=== PATIENT | female | born 1935 | race Caucasian/White ===

== ENCOUNTER 2020-01-22 07:27 | Outpatient (CLI) | payer MEDICARE, SELFPAY ==
[2020-01-22 08:16] LABS: Basophils Percent Auto 0.6 % (0.2-1.2); Eosinophils Absolute Auto 0.1 K/mm3 (0-0.3); Eosinophils Percent Auto 1.4 % (0-4.4); Hematocrit 43.9 % (37.0-47.0); Hemoglobin 14.5 g/dL (12.0-15.0); Immature Granulocyte Absolute 0.02 K/mm3 (0.00-0.031); Immature Granulocyte Percent A 0.3 % (0-0.5); Lymphocytes Absolute Auto 1.47 K/mm3 (0.9-3.2); Lymphocytes Percent Auto 20.7 % (18.3-44.2); Mean Corpuscular Hemoglobin 31.9 pg (26-34); Mean Corpuscular Volume 96.7 fl (80-100); Mean Platelet Volume 10.3 fl (7.4-10.4); Monocytes Absolute Auto 0.7 K/mm3 (0.1-0.6); Monocytes Percent Auto 9.3 % (2.6-8.5); Neutrophils Absolute Auto 4.8 K/mm3 (1.3-6.7); Neutrophils Percent Auto 67.7 % (45.5-73.1); Platelet Count Result 220 k/mm3 (150-375); Red Blood Count 4.54 M/mm3 (4.2-5.4); Red Cell Distribution Width 13.1 % (11.5-14.5); White Blood Count 7.1 K/mm3 (4.5-10.0)
[2020-01-22 08:32] LABS: Alanine Aminotransferase 17 U/L (4-35); Albumin Level 4.2 g/dL (3.5-5.1); Alkaline Phosphatase 64 U/L (38-126); Aspartate Amino Transferase 22 U/L (14-36); Bilirubin,Total 0.8 mg/dL (0.2-1.3); Blood Urea Nitrogen 32 mg/dL (7-17); Calcium 9.5 mg/dL (8.4-10.2); Carbon Dioxide 24 mmol/L (22-30); Chloride 102 mmol/L (98-107); Cholesterol 144 mg/dL (0-200); Estimated Glomerular Filt Rate 27; Glucose 162 mg/dL (65-105); HDL Direct 47 mg/dL; Potassium 5.8 mmol/L (3.4-5.0); Sodium 139 mmol/L (137-145); Triglycerides 168 mg/dL (<150)
[2020-01-22 08:44] LABS: LDL Cholesterol Direct 67 mg/dL
[2020-01-22 08:48] LABS: Hemoglobin A1C 7.3 % (<5.7)
[2020-01-22 09:07] LABS: Free T4 Free Thyroxine 1.08 ng/mL (0.78-2.19)
== END 2020-01-22 07:28 | disposition home or self-care (01) ==
PROVIDERS: PCP Internal Medicine; Visit Provider Internal Medicine
DX: I10 Essential (primary) hypertension (principal); E11.9 Type 2 diabetes mellitus without complications
CPT/HCPCS: 36415; 80053; 80061; 83036; 84439; 84443; 85025

== ENCOUNTER → 2023-03-10 13:05 | Outpatient (CLI) | payer MEDICARE, SELFPAY ==
--- NOTE | ~2023-03-10 | MR_ITS ---
MRI of the lumbar spine Clinical History: Spinal stenosis Technique: Axial T2-weighted images, and sagittal T1-weighted, T2-weighted, and T2 fat-sat images wer e acquired. Findings: No acute fracture seen. 3 mm retrolisthesis of L1 over L2 present. 3 mm listhesis of L2 ove r L3 present. No suspicious bone marrow signal abnormality seen. At L1-L2, there is disc bulge and facet arthropathy. No spinal canal stenosis or definite neural fora tiarra narrowing. At L2-L3, there is disc bulge and facet arthropathy. No adelina spinal canal stenosis. There is mild ri ght neural foraminal narrowing. Left neural foramen preserved. L3-L4, there is mild disc bulge with advanced facet arthropathy. No spinal canal stenosis. There is m ild to moderate right neural foraminal narrowing. Left neural foramen preserved. At L4-L5, disc bulge and facet arthropathy are present, resulting in mild central canal stenosis/thec al sac compression. There is mild left neural foraminal narrowing. Right neural foramen preserved. At L5-S1, there is minimal disc bulge. There is advanced facet arthropathy. No spinal canal stenosis. There is minimal left neural foraminal narrowing. Right neural foramen preserved. Paravertebral soft tissues are unremarkable. Impression: Mild to moderate spondylosis, as detailed above. Reviewed, dictated and finalized at location . Impression: Mild to moderate spondylosis, as detailed above.
== END ==
PROVIDERS: PCP Internal Medicine; Visit Provider Orthopaedic Surgery
DX: M48.07 Spinal stenosis, lumbosacral region (principal); M47.896 Other spondylosis, lumbar region
CPT/HCPCS: 72148